=== PATIENT | female | born 1990 | race Caucasian/White ===

== ENCOUNTER 2017-11-28 11:21 | Emergency (ER) | payer OTHER ==
[2017-11-28] MEDS ORDERED: DEXAMETHASONE INJ 10 MG/ML VIAL IM ONE (11:27)
[2017-11-28] MEDS ORDERED: diphenhydrAMINE HCL 50 MG/ML VIAL IM ONE (11:27)
[2017-11-28] MEDS ORDERED: hydrOXYzine HCl 50 MG/ML VIAL IM ONE (12:45)
--- NOTE | 2017-11-28 12:49 | ED.PDOC ---
History of Present Illness - General Chief Complaint: Allergic Reaction Stated Complaint: Hives, feels throat is tightening Time Seen by Provider: 11/28/17 11:27 Source: patient, Vital Signs reviewed Exam Limitations: no limitations - History of Present Illness Initial Comments: Reports that she has had the acute onset of burning sensation to her face, scratchy throat & feeling as if her airway is tightening. She has had this several times in the past & even had allergy skin testing that was inconclusive. Currently the theory is that she is inhaling some sort of allergen. She took an H2 leon[employer] but it has not helped. Timing/Duration: 1/2 hour Severity: moderate Improving Factors: nothing Worsening Factors: nothing Associated Symptoms: rash, shortness of breath, other - she feels like her face is getting hot Allergies/Adverse Reactions: Allergies Amoxicillin Allergy (Verified 11/28/17 11:26) Unknown Penicillins Allergy (Verified 11/28/17 11:26) Unknown Home Medications: Ambulatory Orders hydrOXYzine PAMOATE [Vistaril] 25 mg PO Q8HRS PRN #10 cap 11/28/17 Review of Systems - Review of Systems Constitutional: States: no symptoms reported EENTM: States: see HPI, throat pain, throat swelling. Denies: nose congestion, mouth pain, mouth swelling Respiratory: States: short of breath. Denies: cough, wheezing Cardiology: States: no symptoms reported Gastrointestinal/Abdominal: States: nausea. Denies: abdominal pain, diarrhea, vomiting Musculoskeletal: States: no symptoms reported Skin: States: see HPI, rash Neurological: States: no symptoms reported Past Medical History (General) - Patient Medical History Hx Stroke: No Hx Congestive Heart Failure: No Hx Diabetes: No - Vaccination History Hx Tetanus, Diphtheria Vaccination: No Hx Influenza Vaccination: No Hx Pneumococcal Vaccination: No - Social History Hx Tobacco Use: Yes - Female History Patient is a Female of Child Bearing Age (10 -59 yrs old): Yes Patient : No Family Medical History - Family History Mother Living Status: Still Living Hx Family Hypertension: Yes Physical Exam - Physical Exam General Appearance: Alert, Anxious, Comfortable, No apparent distress Eye Exam: bilateral normal Ears, Nose, Throat: hearing grossly normal, normal pharynx Neck: non-tender, full range of motion, supple, normal inspection Respiratory: lungs clear, normal breath sounds, no respiratory distress, no accessory muscle use Cardiovascular/Chest: regular rate, rhythm, no edema, no gallop, no JVD, no murmur Gastrointestinal/Abdominal: non tender, soft, no organomegaly Extremity: normal range of motion, normal inspection, no pedal edema, no calf tenderness Neurologic: no motor/sensory deficits, alert, normal mood/affect, oriented x 3 Skin Exam: warm/dry, rash - facial flushing Lymphatic: no adenopathy Progress - Progress Progress: 11/28/17 12:46 Unchanged. No acute distress. 11/28/17 21:37 Her symptoms & findings were mild. She exhibited no worsening. She was given a long acting steroid and Vistaril as she has had reactions to Benadryl. This is not a new problem for her. Teaching & precautions given. - Results/Orders Results/Orders: strep negative Departure - Departure Clinical Impression: Sore throat Allergic reaction Qualifiers: Encounter type: initial encounter Qualified Code(s): T78.40XA - Allergy, unspecified, initial encounter Time of Disposition: 12:47 Disposition: Discharge to Home or Self Care Departure Forms: ED Discharge - Pt. Copy, Patient Portal Self Enrollment Instructions: Skin Rash (DC) Referrals: Austin Rose III, MD [Primary Care Provider] - 11/30/17 (if needed) Prescriptions: hydrOXYzine PAMOATE [Vistaril] 25 mg PO Q8HRS PRN #10 cap PRN Reason: Rash Home Medications: Ambulatory Orders hydrOXYzine PAMOATE [Vistaril] 25 mg PO Q8HRS PRN #10 cap 11/28/17
[2017-11-28 13:08] VITALS: BP 112/68; TEMP 98; O2SAT 98
== END 2017-11-28 13:22 | disposition home or self-care (01) ==
LOC: ER 11:21
DX: R21 Rash and other nonspecific skin eruption (principal); T78.40XA Allergy, unspecified, initial encounter; J02.9 Acute pharyngitis, unspecified; R06.02 Shortness of breath; Z87.891 Personal history of nicotine dependence; Z88.0 Allergy status to penicillin
CPT/HCPCS: 87070; 87880; J1100; J3410

== ENCOUNTER 2017-11-29 14:14 | Emergency (ER) | payer SELFPAY ==
[2017-11-29] MEDS ORDERED: MORPHINE SULFATE INJ 10 MG/ML VIAL IV ONE (14:39)
--- NOTE | 2017-11-29 14:44 | ED.PDOC ---
History of Present Illness - General Chief Complaint: Skin/Abrasion/Tear Time Seen by Provider: 11/29/17 14:32 Source: patient Exam Limitations: no limitations - History of Present Illness Initial Comments: Patient presents with a rash for 24 hours. It started at her upper chest and neck. At first she felt that her throat was swelling up. She came to the E[facility] and received a dose of Decadron and Hydralazine. She says that the throat fullness has resolved but that the rash has become very painful. She noticed two insect bites on the left side of her neck. She also has two small vesicles that have appeared on her chin that had yellow fluid exudate. No previous episodes. No other areas of a rash. No other complaints. Timing/Duration: 24 hours Severity: moderate Improving Factors: nothing, eating Associated Symptoms: denies symptoms Allergies/Adverse Reactions: Allergies Amoxicillin Allergy (Verified 11/28/17 11:26) Unknown Penicillins Allergy (Verified 11/28/17 11:26) Unknown Home Medications: Ambulatory Orders hydrOXYzine PAMOATE [Vistaril] 25 mg PO Q8HRS PRN #10 cap 11/28/17 Sulfa/Trimeth 800/160 (Ds) Tab [Bactrim DS] 1 tablet PO BID #20 tab 11/29/17 Review of Systems - Review of Systems Constitutional: States: no symptoms reported EENTM: States: no symptoms reported Respiratory: States: no symptoms reported Cardiology: States: no symptoms reported Gastrointestinal/Abdominal: States: no symptoms reported Genitourinary: States: no symptoms reported Musculoskeletal: States: no symptoms reported Skin: States: see HPI Neurological: States: no symptoms reported Endocrine: States: no symptoms reported Hematologic/Lymphatic: States: no symptoms reported Past Medical History (General) - Patient Medical History Hx Stroke: No Hx Congestive Heart Failure: No Hx Diabetes: No - Vaccination History Hx Tetanus, Diphtheria Vaccination: No Hx Influenza Vaccination: No Hx Pneumococcal Vaccination: No - Social History Hx Tobacco Use: Yes - Female History Patient : No Family Medical History - Family History Mother Living Status: Still Living Hx Family Hypertension: Yes Physical Exam - Physical Exam General Appearance: Alert Ears, Nose, Throat: normal ENT inspection Neck: non-tender, full range of motion, supple Respiratory: lungs clear, normal breath sounds Cardiovascular/Chest: normal peripheral pulses, regular rate, rhythm Gastrointestinal/Abdominal: normal bowel sounds, non tender, soft Skin Exam: rash - Erythmatic blacnhing macular rash around the upper chest and anterior neck. There are two punctate lesions on the left side of the neck. There are to excoriated vesicles on the chin. Lymphatic: no adenopathy Progress - Progress Progress: 11/29/17 15:42 Laboratory Tests 11/29/17 11/29/17 14:53 14:53 WBC 13.8 H RBC 5.09 Hgb 14.5 Hct 44.2 MCV 86.8 MCH 28.5 MCHC 32.8 L RDW 14.1 Plt Count 374 MPV 9.1 Absolute Neuts (auto) 8.60 H Absolute Lymphs (auto) 3.50 H Absolute Monos (auto) 1.60 H Absolute Eos (auto) 0.10 Absolute Basos (auto) 0.10 Neutrophils % 62.5 Lymphocytes % 25.0 Monocytes % 11.3 H Eosinophils % 0.7 L Basophils % 0.5 Sodium 142 Potassium 3.1 L Chloride 107 Carbon Dioxide 27 Anion Gap 11.1 L BUN 11 Creatinine 0.75 BUN/Creatinine Ratio 14.7 Random Glucose 80 Serum Osmolality 281.5 Calcium 9.7 Total Bilirubin 0.4 AST 22 ALT 15 Alkaline Phosphatase 69 Serum Total Protein 7.9 Albumin 4.7 Globulin 3.2 Albumin/Globulin Ratio 1.5 wbc 13.8 which is likely due to the Decadron from yesterday. The yellow exudate from the chin is concerning for staph or strep infection. Will TX with Bactrim for possible rapidly developing cellulitis. Wound culture taken and sent. Follow up with her regular physician this week recommended. Care instructions given. E.R. warnings given. Questions were elicited and answered. The patient voiced understanding and agreement with the plan. Departure - Departure Clinical Impression: Rash, Tobacco abuse counseling Disposition: Discharge to Home or Self Care Condition: Good Departure Forms: ED Discharge - Pt. Copy, Patient Portal Self Enrollment Instructions: DI for Abrasion Diet: resume usual diet Activity: increase activity as tolerated Referrals: Austin Rose III, MD [Primary Care Provider] - 1-2 Weeks Prescriptions: Sulfa/Trimeth 800/160 (Ds) Tab [Bactrim DS] 1 tablet PO BID #20 tab Home Medications: Ambulatory Orders hydrOXYzine PAMOATE [Vistaril] 25 mg PO Q8HRS PRN #10 cap 10/13/18 Sulfa/Trimeth 800/160 (Ds) Tab [Bactrim DS] 1 tablet PO BID #20 tab 11/29/17 Additional Instructions: Take prescription as directed. Stop smoking. See the smoking cessation literature. See your regular doctor this week to recheck the rash. Return to the E.R. for temperature above 100.4 or if rash worsens.
[2017-11-29 14:46] VITALS: TEMP 98.1
[2017-11-29 15:43] VITALS: BP 119/77; O2SAT 99
== END 2017-11-29 16:00 | disposition home or self-care (01) ==
LOC: ER 14:14
DX: R21 Rash and other nonspecific skin eruption (principal); F17.200 Nicotine dependence, unspecified, uncomplicated; Z88.0 Allergy status to penicillin
CPT/HCPCS: 36415; 80053; 85025; 87070; 87205; 99406; J2270